=== PATIENT | male | born 1945 | race Caucasian/White ===

== ENCOUNTER 2024-10-30 21:54 | Emergency (ER) | payer OTHER ==
[~2024-10-30] VITALS: Ht 165.1 cm; Wt 63.6 kg
[2024-10-30 21:56] VITALS: TEMP 94.5
[2024-10-30] MEDS: normal saline 1000ML IV soln IVB ONE (22:35)
[2024-10-30] MEDS: magnesium sulf-water 2g/50mL 50 ML IV ONE (22:35)
[2024-10-30 22:41] LABS: BASOPHILS % (AUTO) 0.3 % (0-1); EOSINOPHILS % (AUTO) 0.6 % (0-6); HEMATOCRIT 44.3 % (42.0-52.0); HEMOGLOBIN 14.9 g/dl (14.0-17.9); LYMPHOCYTES # (AUTO) 1.1 X10'3 (1.1-4.8); LYMPHOCYTES % (AUTO) 18.4 % (21-51); MEAN CORPUSCULAR HGB CONC 33.7 g/dL (33.0-36.5); MEAN CORPUSCULAR VOLUME 97.7 FL (78-98); MEAN PLATELET VOLUME 9.7 FL (7.4-10.4); MONOCYTES # (AUTO) 0.8 X10'3 (0-0.9); MONOCYTES % (AUTO) 13.2 % (2-12); NEUTROPHILS % (AUTO) 67.5 % (42-75); PLATELET COUNT 179 X10'3 (140-440); RED BLOOD COUNT 4.53 X10'6 (4.70-6.10); RED CELL DISTRIBUTION WIDTH 14.6 % (11.5-14.5); WHITE BLOOD COUNT 5.9 X10'3 (4.5-11.0)
[2024-10-30 22:56] LABS: ALANINE AMINOTRANSFERASE 112 U/L (12-78); ALBUMIN 3.4 G/DL (3.4-5.0); ALKALINE PHOSPHATASE 80 IU/L (46-116); ANION GAP 10 (8-16); ASPARTATE AMINO TRANSFERASE 41 U/L (10-37); BILIRUBIN,TOTAL 1.4 MG/DL (0.1-1.0); BLOOD UREA NITROGEN 10 MG/DL (7-18); BUN/CREATININE RATIO 8.1 (10.0-20.0); CALCIUM 8.8 MG/DL (8.5-10.1); CHLORIDE 101 MMOL/L (99-107); CREATININE 1.24 MG/DL (0.60-1.10); GLUCOSE 121 MG/DL (70-104); POTASSIUM 3.8 MMOL/L (3.5-5.1); SODIUM 136 MMOL/L (135-145); TOTAL CARBON DIOXIDE 24.9 MMOL/L (24-32); TOTAL PROTEIN 6.8 G/DL (6.4-8.2); eCRCL 43 ML/MIN; eGFR 56 ML/MIN
[2024-10-30 23:05] LABS: PRO BRAIN NATRIURETIC PEPTIDE 5029 PG/ML (0-450)
[2024-10-30] MEDS: diltiazem 5mg/ml 5ml inj. IV ONE (23:23)
[2024-10-30] MEDS: etomidate 2mg/ml inj. IV ONE (23:46)
[2024-10-30] MEDS ORDERED: sotalol HCl 40mg (1/2 tablet) PO STA (23:51)
[2024-10-31] MEDS: sotalol HCl 40mg (1/2 tablet) PO ONE (00:30)
[2024-10-31 02:11] VITALS: BP 121/82; PULSE 83; RESP 16; O2SAT 98
== END 2024-10-31 02:31 | disposition home or self-care (01) ==
LOC: ER 21:55
DX: R00.0 Tachycardia, unspecified (principal); R06.02 Shortness of breath; I48.91 Unspecified atrial fibrillation
CPT/HCPCS: 36415; 71045; 80053; 80162; 83880; 84484; 85025; 92960; 93005; 96365; 96375; 99152; 99153; 99291; J3490; J7030; 94760; 99285

== ENCOUNTER 2024-11-09 08:58 | Day surgery (SDC) | payer OTHER ==
[~2024-11-09] VITALS: Ht 165.1 cm; Wt 63.3 kg
[2024-11-09] VITALS (12 sets, daily range): BP systolic 90–120; BP diastolic 58–92; PULSE 61–123; RESP 15–16; TEMP 98; O2SAT 97–99
[2024-11-09] MEDS ORDERED: METO-384 PO (09:24)
[2024-11-09] MEDS ORDERED: APIX5TAB3 PO (09:24)
[2024-11-09] MEDS ORDERED: AMI200T PO (09:24)
[2024-11-09] MEDS ORDERED: FLO0.4C (09:24)
[2024-11-09 09:35] LABS: BASOPHILS % (AUTO) 0.5 % (0-1); EOSINOPHILS # (AUTO) 0.1 X10'3 (0-0.9); EOSINOPHILS % (AUTO) 1.3 % (0-6); HEMATOCRIT 40.3 % (42.0-52.0); HEMOGLOBIN 13.8 g/dl (14.0-17.9); LYMPHOCYTES % (AUTO) 20.4 % (21-51); MEAN CORPUSCULAR HEMOGLOBIN 33.4 PG (27.0-31.0); MEAN CORPUSCULAR HGB CONC 34.1 g/dL (33.0-36.5); MEAN CORPUSCULAR VOLUME 97.7 FL (78-98); MEAN PLATELET VOLUME 9.2 FL (7.4-10.4); MONOCYTES # (AUTO) 0.7 X10'3 (0-0.9); MONOCYTES % (AUTO) 13.9 % (2-12); NEUTROPHILS # (AUTO) 3.1 X10'3 (1.8-7.7); NEUTROPHILS % (AUTO) 63.9 % (42-75); PLATELET COUNT 169 X10'3 (140-440); RED BLOOD COUNT 4.12 X10'6 (4.70-6.10); RED CELL DISTRIBUTION WIDTH 14.4 % (11.5-14.5); WHITE BLOOD COUNT 4.8 X10'3 (4.5-11.0)
[2024-11-09 09:49] LABS: APTT 31 SECONDS (22-32); INR 1.3 INR; PROTHROMBIN TIME 13.1 SECONDS (9.0-12.0)
[2024-11-09 09:51] LABS: ALBUMIN 3.3 G/DL (3.4-5.0); ANION GAP 12 (8-16); BLOOD UREA NITROGEN 11 MG/DL (7-18); BUN/CREATININE RATIO 10.5 (10.0-20.0); CALCIUM 8.6 MG/DL (8.5-10.1); CHLORIDE 99 MMOL/L (99-107); CHOL/HDL RATIO 1.6 (0.00-4.99); CHOLESTEROL 113 MG/DL (0-200); CREATININE 1.05 MG/DL (0.60-1.10); GLUCOSE 124 MG/DL (70-104); HDL CHOLESTEROL 70 MG/DL (35-60); LDL CHOLESTEROL 42 MG/DL (50-100); POTASSIUM 3.9 MMOL/L (3.5-5.1); SODIUM 135 MMOL/L (135-145); TOTAL CARBON DIOXIDE 24.5 MMOL/L (24-32); TRIGLYCERIDES 52 MG/DL (20-135); eCRCL 50 ML/MIN; eGFR 68 ML/MIN
[2024-11-09] MEDS: MIDAZolam 1mg/ml 10ml vial IV ONE (11:34)
[2024-11-09] MEDS: normal saline 1000ml 1,000 ML IV SCH (11:34)
[2024-11-09] MEDS: fentaNYL/PF 50MCG/1 ML 2ML syringe IV ONE (11:34)
[2024-11-10] MEDS ORDERED: POTA-206 PO (21:03)
[2024-11-10] MEDS ORDERED: FURO-150 PO (21:03)
== END 2024-11-09 14:30 | disposition home or self-care (01) ==
LOC: SSTAY O 08:58
PROVIDERS: ATTEND Student in an Organized Health Care Education/Training Program
DX: I48.0 Paroxysmal atrial fibrillation (principal); I10 Essential (primary) hypertension; I42.8 Other cardiomyopathies; Z79.899 Other long term (current) drug therapy; Z88.2 Allergy status to sulfonamides
CPT/HCPCS: 36415; 80048; 80061; 85025; 85610; 85730; 92960; 93005; J2250; J3010; J7030

== ENCOUNTER 2024-11-10 15:32 | Emergency (ER) | payer OTHER ==
[~2024-11-10] VITALS: Ht 165.1 cm; Wt 61.4 kg
[~2024-11-10 15:32] MED LIST: AMI200T PO; APIX5TAB3 PO; FLO0.4C; METO-384 PO
[2024-11-10 15:34] VITALS: TEMP 97.8
[2024-11-10] MEDS ORDERED: FURO-150 PO (21:03)
[2024-11-10] MEDS ORDERED: POTA-206 PO (21:03)
[2024-11-10 21:23] VITALS: BP 138/89; PULSE 79; RESP 16; O2SAT 98
== END 2024-11-10 21:29 | disposition home or self-care (01) ==
LOC: ER 16:56
DX: R60.0 Localized edema (principal); I48.91 Unspecified atrial fibrillation; I50.9 Heart failure, unspecified; Z79.899 Other long term (current) drug therapy
CPT/HCPCS: 36415; 83880; 99283